=== PATIENT | male | born 1945 | race Caucasian/White ===

== ENCOUNTER 2017-04-07 03:04 | Emergency (ER) | payer OTHER ==
[~2017-04-07] VITALS: Ht 185.4 cm; Wt 105.6 kg
[2017-04-07 03:28] LABS: ADD MIUA? YES; BILIRUBIN NEGATIVE; BLOOD NEGATIVE; COLOR YELLOW ((YELLOW)); GLUCOSE (STRIP) NEGATIVE; KETONES NEGATIVE; LEUKOCYTES NEGATIVE; NITRITE NEGATIVE; PROTEIN (STRIP) NEGATIVE; SPECIFIC GRAVITY 1.028 (1.000-1.030)
[2017-04-07 03:30] LABS: HEMATOCRIT 43.6 % (38.0-50.0); MCH 31.3 PG (29.0-34.0); MCHC 33.5 G/DL (30.0-36.0); MCV 93.6 FL (86-99); MEAN PLAT.VOLUME 10.6 uM^3 (9.0-12.4); PLATELET COUNT 176 K/uL (156-360); RBC DIS.WIDTH-SD 44.8 % (39-53); RED BLOOD COUNT 4.66 M/uL (4.00-5.50); WHITE BLOOD COUNT 12.5 K/uL (4.1-10.2)
[2017-04-07 03:37] LABS: CHLORIDE 106 mEq/L (99-109); POTASSIUM 5.1 mEq/L (3.7-5.4); SODIUM 143 mEq/L (136-147)
[2017-04-07 03:39] LABS: GLUCOSE 159 mg/dL (70-99)
[2017-04-07 03:41] LABS: ANION GAP 13 MEQ/L (2-14)
[2017-04-07 03:43] LABS: GFR ESTIMATE (CALCULATED) > 59 mL/min/
[2017-04-07 03:44] LABS: UREA NITROGEN (BUN) 21 mg/dL (9-23)
[2017-04-07 03:51] LABS: BACTERIA RARE /HPF; CASTS NONE SEEN /LPF; CRYSTALS PRESENT; EPITHELIAL CELLS RARE /HPF; MUCUS NONE SEEN /LPF; RED BLOOD CELLS NONE SEEN /HPF (0-5); UCUL ADDED? NO; WHITE BLOOD CELLS RARE /HPF (0-5)
[2017-04-07 03:52] LABS: CALCIUM OXALATE CRYSTALS 3+ /HPF
[2017-04-07] MEDS ORDERED: FLOMAX0.4 MG PO (04:39)
[2017-04-07] MEDS ORDERED: ZOFRAN4 MG PO (04:39)
[2017-04-07] MEDS ORDERED: TORADOL10 MG PO (04:39)
[2017-04-07] MEDS ORDERED: PERCOCET 5/31 TABLET PO (04:40)
[2017-04-07 05:02] VITALS: BP 126/72
== END 2017-04-07 05:04 | disposition home or self-care (01) ==
LOC: EME 03:04
DX: N20.0 Calculus of kidney (principal); E11.9 Type 2 diabetes mellitus without complications; E78.5 Hyperlipidemia, unspecified; I10 Essential (primary) hypertension; Z87.442 Personal history of urinary calculi; K21.9 Gastro-esophageal reflux disease without esophagitis; Z87.891 Personal history of nicotine dependence
CPT/HCPCS: 74176; 80048; 81003; 85027; 99281; 99285; J1885; J2405; J7030